=== PATIENT | female | born 1970 | race American Indian/Alaskan Native ===

== ENCOUNTER 2017-01-24 02:18 | Emergency (ER) | payer SELFPAY ==
[2017-01-24 02:45] VITALS: BP 113/79
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
== END 2017-01-24 05:06 | disposition left against medical advice (07) ==
LOC: ED 02:18
DX: Z53.21 Procedure and treatment not carried out due to patient leaving prior to being seen by health care provider (principal)
CPT/HCPCS: 70450

== ENCOUNTER 2017-03-14 15:59 | Emergency (ER) | payer OTHER ==
[2017-03-14 16:34] VITALS: BP 105/76
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
== END 2017-03-14 22:00 | disposition left against medical advice (07) ==
LOC: ED 15:59
DX: R51 Headache (principal); M79.606 Pain in leg, unspecified; Z53.21 Procedure and treatment not carried out due to patient leaving prior to being seen by health care provider; Y04.2XXA Assault by strike against or bumped into by another person, initial encounter

== ENCOUNTER 2017-11-06 12:12 | Outpatient (CLI) | payer OTHER ==
[2017-11-06 12:40] LABS: Basophils % (Auto) 0.3 % (0.0-1.8); Eosinophils # (Auto) 0.1 K/mm3 (0.0-0.4); Eosinophils % (Auto) 1.2 % (0.0-4.3); Hematocrit 35.1 % (30.3-42.9); Hemoglobin 11.2 gm/dl (10.1-14.3); Lymphocytes # (Auto) 1.8 K/mm3 (1.2-5.4); Lymphocytes % (Auto) 24.4 % (13.4-35.0); Mean Corpuscular HGB Conc 32 % (30-34); Mean Corpuscular Volume 77 fl (79-97); Monocytes # (Auto) 0.4 K/mm3 (0.0-0.8); Monocytes % (Auto) 5.5 % (0.0-7.3); Platelet Count 377 K/mm3 (140-440); Red Blood Count 4.59 M/mm3 (3.65-5.03); Red Cell Distribution Width 16.9 % (13.2-15.2)
[2017-11-06 12:44] LABS: Mean Corpuscular Hemoglobin 25 pg (28-32)
[2017-11-06 12:53] LABS: Erythrocyte Sedimentation Rate 30 mm/Hr (0-20)
== END 2017-11-06 12:13 | disposition home or self-care (01) ==
LOC: LAB 12:12
PROVIDERS: ATTEND Orthopaedic Surgery
DX: S82.842K Displaced bimalleolar fracture of left lower leg, subsequent encounter for closed fracture with nonunion (principal); Z88.1 Allergy status to other antibiotic agents
CPT/HCPCS: 36415; 85025; 85652; 86140

== ENCOUNTER 2017-11-16 12:28 | Outpatient (CLI) | payer OTHER | END 2017-11-16 12:29 | disposition home or self-care (01) | LOC: LAB 12:28 | PROVIDERS: ATTEND Orthopaedic Surgery | DX: S82.842K Displaced bimalleolar fracture of left lower leg, subsequent encounter for closed fracture with nonunion (principal); Z88.2 Allergy status to sulfonamides; Z90.89 Acquired absence of other organs; Z90.49 Acquired absence of other specified parts of digestive tract; X58.XXXD Exposure to other specified factors, subsequent encounter | CPT/HCPCS: 36415; 82310 ==

== ENCOUNTER 2017-11-27 11:17 | Outpatient (CLI) | payer OTHER | END 2017-11-27 11:18 | disposition home or self-care (01) | LOC: LAB 11:17 | PROVIDERS: ATTEND Orthopaedic Surgery | DX: S82.842K Displaced bimalleolar fracture of left lower leg, subsequent encounter for closed fracture with nonunion (principal); Z88.2 Allergy status to sulfonamides; Z90.49 Acquired absence of other specified parts of digestive tract; X58.XXXA Exposure to other specified factors, initial encounter; Y93.89 Activity, other specified; Y92.89 Other specified places as the place of occurrence of the external cause; Y99.8 Other external cause status | CPT/HCPCS: 36415; 82306 ==